=== PATIENT | female | born 1975 | race Two or more races ===

== ENCOUNTER 2018-10-13 05:48 | Emergency (ER) | payer MEDICAID, OTHER ==
[~2018-10-13] VITALS: Ht 152.4 cm; Wt 73.9 kg
[~2018-10-13 05:48] MED LIST: AMOX500C2; HYDR-4683 PO
[2018-10-13 07:21] VITALS: BP 111/74
[2018-10-13] MEDS ORDERED: LACTULOSE 20Gm/30ML SOLN PO ONE (07:45)
[2018-10-13] MEDS ORDERED: KETOROLAC TROMETH 60MG/2ML VIAL IM ONE (07:45)
== END 2018-10-13 08:13 | disposition home or self-care (01) ==
LOC: ER 05:48
DX: K57.30 Diverticulosis of large intestine without perforation or abscess without bleeding (principal); K59.00 Constipation, unspecified; N83.201 Unspecified ovarian cyst, right side; Z87.442 Personal history of urinary calculi; Z98.51 Tubal ligation status
CPT/HCPCS: 74176; 81002; 81025; 99284; J1885

== ENCOUNTER 2019-04-06 19:00 | Emergency (ER) | payer MEDICAID, OTHER ==
[~2019-04-06] VITALS: Ht 152.4 cm; Wt 76.2 kg
[2019-04-06 19:17] VITALS: BP 163/96
[2019-04-06 19:49] LABS: Basophils # (auto) 0 uL; Lymphocytes # (auto) 0.8 uL; Monocytes # (auto) 0.7 uL
[2019-04-06 19:50] LABS: Basophils % (auto) 0.5 % (0.0-2.0); Eosinophils # (auto) 0.1 uL; Eosinophils % (auto) 0.8 % (0.0-7.0); Hematocrit 37.2 % (36.0-46.0); Hemoglobin 12.3 g/dL (12.2-16.2); Lymphocytes % (auto) 10.3 % (10.0-50.0); Mean Corpuscular Hemoglobin 26.7 pg (28.0-32.0); Mean Corpuscular Hgb Conc. 33.1 g/dL (32.0-36.0); Mean Corpuscular Volume 80.6 fL (80.0-100.0); Neutrophils # (auto) 6.2 uL; Neutrophils % (auto) 79.4 % (37.0-80.0); Platelet Count (auto) 342 10^3/uL (140-450); Red Blood Cells 4.62 10^6/uL (4.0-5.20); Red Cell Distribution Width 15.5 % (11.8-14.3); White Blood Cell 7.8 10^3/uL (4.4-10.8)
[2019-04-06 20:11] LABS: Albumin 3.2 g/dL (3.4-5.0); Calcium 8.4 mg/dL (8.5-10.1); Potassium 3.4 mmol/L (3.5-5.1)
[2019-04-06 20:12] LABS: BUN/Creatinine Ratio 10.7
[2019-04-06 20:23] LABS: Bilirubin, Total 0.4 mg/dL (0.2-1.0); Total Protein 7.3 g/dL (6.4-8.2)
== END 2019-04-06 23:00 | disposition left against medical advice (07) ==
LOC: ER 19:05
DX: R10.9 Unspecified abdominal pain (principal); Z87.442 Personal history of urinary calculi; Z53.21 Procedure and treatment not carried out due to patient leaving prior to being seen by health care provider
CPT/HCPCS: 36415; 80053; 84702; 85025

== ENCOUNTER → 2019-04-06 | Emergency (ER) | payer OTHER ==
[~2019-04-06] MED LIST changes: -HYDR-4683 PO; +HYDR-4833 PO
== END | disposition left against medical advice (07) ==
LOC: ER 20:03
DX: M54.5 Low back pain (principal); Z53.21 Procedure and treatment not carried out due to patient leaving prior to being seen by health care provider

== ENCOUNTER 2019-08-26 21:12 | Inpatient (IN) | payer SELFPAY ==
[~2019-08-26] VITALS: Ht 154.9 cm; Wt 76.9 kg
[2019-08-26 22:16] LABS: Albumin 2.8 g/dL (3.4-5.0); BUN/Creatinine Ratio 18.9; Calcium 8.3 mg/dL (8.5-10.1); Potassium 3.6 mmol/L (3.5-5.1)
[2019-08-26 22:19] LABS: Bilirubin, Total 0.3 mg/dL (0.2-1.0); Total Protein 6.9 g/dL (6.4-8.2)
[2019-08-26] MEDS ORDERED: HYDROcodone-ACET 5/325MG TAB PO ONE (23:15)
[2019-08-27] VITALS (8 sets, daily range): BP systolic 100–153; BP diastolic 62–92
[2019-08-27] MEDS ORDERED: ACETAMINOPHEN 325 MG TAB PO PRN (00:30)
[2019-08-27] MEDS ORDERED: MORPHINE SULFATE 4 MG/ML SYR/VIAL IV PRN (00:30)
[2019-08-27] MEDS ORDERED: DOCUSATE SOD 100 MG CAP PO PRN (00:30)
[2019-08-27] MEDS ORDERED: ONDANSETRON HCL 4 MG/2 ML VIAL IV PRN (00:30)
[2019-08-27] MEDS: SODIUM CHLORIDE 0.9% 1,000 ML IV SCH ×2 (02:29→17:09)
[2019-08-27] MEDS: HYDROcodone-ACET 5/325MG TAB PO PRN ×3 (03:58→20:38)
[2019-08-27 06:00] LABS: Basophils # (auto) 0 10 ^3/uL (0-0.2); Basophils % (auto) 0.6 % (0.0-2.0); Eosinophils # (auto) 0.1 10 ^3/uL (0-0.8); Lymphocytes # (auto) 1.6 10 ^3/uL (0.4-5.4); Monocytes # (auto) 0.6 10 ^3/uL (0-1.3); Nucleated Red Blood Cells % 0.1 %; White Blood Cell 6.3 10^3/uL (4.4-10.8)
[2019-08-27 06:04] LABS: Eosinophils % (auto) 1.8 % (0.0-7.0); Hematocrit 21.3 % (36.0-46.0); Lymphocytes % (auto) 24.9 % (10.0-50.0); Mean Corpuscular Hemoglobin 25.7 pg (28.0-32.0); Mean Corpuscular Hgb Conc. 32.5 g/dL (32.0-36.0); Mean Corpuscular Volume 79.1 fL (80.0-100.0); Monocytes % (auto) 8.9 % (0.0-12.0); Neutrophils % (auto) 63.8 % (37.0-80.0); Platelet Count (auto) 380 10^3/uL (140-450); Red Blood Cells 2.69 10^6/uL (4.0-5.20); Red Cell Distribution Width 16.9 % (11.8-14.3)
[2019-08-27 06:07] LABS: Calcium 8.1 mg/dL (8.5-10.1); Potassium 3.6 mmol/L (3.5-5.1)
[2019-08-27 06:09] LABS: Hemoglobin 6.9 g/dL (12.2-16.2)
[2019-08-27 06:10] LABS: BUN/Creatinine Ratio 21.1
--- NOTE | 2019-08-27 06:12 | NUR ---
0610 OBTAINED HEMOGLOBIN RESULT 6.[address] LANDON. TRANSFUSE 1 UNIT OF PRBC.
--- NOTE | 2019-08-27 08:03 | NUR ---
Blood Tubing unavailable at this time. Esthetics Instructor aware. Unable to transfuse patient at this time, no blood tubing available for transfusion on entire Med/surg unit. This RN called ER, they do not have any available at this time. Will continue to monitor situation, call materials management again, they said they will be have some available around 1030.
--- NOTE | 2019-08-27 08:10 | NUR ---
Opening Note Assumed care of patient, she is A & O x4, no s/s of distress. Patient c/o vaginal bleeding, is soaking through a pad every 4 hours, and pain to the lower back. Will medicate per orders. Blood transfusion is ready, but no blood tubing available at this time. Bed is in lowest, locked position, call light within reach, patient is ambulatory and independent. Discussed fall precautions with patient. Will continue to monitor Q1h and PRN.
[2019-08-27] MEDS ORDERED: INFLUENZA QUAD 2019-2020 0.5ml SYRG IM ONE (09:00)
--- NOTE | 2019-08-27 09:22 | NUR ---
Dr. Stephenson at bedside. Orders received, read back and verified for MRI and TSH blood level. Will continue per orders. He would like patient to follow up with him if insurance allows, but the patient will need an IRON MINER BLASTING to follow after this visit.
--- NOTE | 2019-08-27 10:30 | NUR ---
Dr. Russell at bedside. Orders received for diet, read back and verified. Will continue per orders. Dr. Russell made aware by this RN that we are anticipating a blood transfusion once blood tubing is available.
[2019-08-27] MEDS ORDERED: GADOTERIDOL 279.3mg/mL 20ml Vial IV ONE (11:11)
--- NOTE | 2019-08-27 11:22 | NUR ---
Patient to MRI.
[2019-08-27 11:57] LABS: INR 0.98 (0.9-1.15); Partial Thromboplastin Time 23.1 sec (23.64-32.05)
--- NOTE | 2019-08-27 18:21 | NUR ---
Patient vaginal bleeding progress note Patient has saturated two full depends since this morning, patient states "this is how it has been for the past few days". Patient continues to have bleeding that is bright right. Educated patient regarding s/s of increased bleeding and to inform her RN immediately of these s/s. POC discussed, patient agrees. She is comfortable at this time, patient ambulates to bathroom independently, no s/s of hypovolemia. Will continue to monitor.
--- NOTE | 2019-08-27 22:00 | NUR ---
PT STATED SHE WAS BLEEDING OUT. CINDY PAD CHECK REVEALED BLOOD STAIN THE SIZE OF A HALF DOLLAR. NO CLOTS NO MAXIMUM SATURATION.PT UPSET THAT DR ALVARADO IS NOT BEING CALLED IN.UPON CHECKING DR ALVARADO"S PROGRESS NOTE HIS PLAN OF CARE FOR THIS PATIENT IS IRON TABLETS,BLOOD DRAW IN AM AND EVALUATE THE PELVIC MRI. DISCUSSED PLAN OF CARE WITH PATIENT.WILL CONTINUE TO MONITOR.
[2019-08-27] MEDS ORDERED: LIDOCAINE 1% HCL (LOCAL ANESTH.) INJ 20ML MDV ONE (22:47)
[2019-08-28 05:54] VITALS: BP 115/70
[2019-08-28 07:05] LABS: Basophils # (auto) 0 10 ^3/uL (0-0.2); Eosinophils # (auto) 0.1 10 ^3/uL (0-0.8); Hemoglobin 7.8 g/dL (12.2-16.2); Monocytes # (auto) 0.5 10 ^3/uL (0-1.3); Nucleated Red Blood Cells % 0.3 %; White Blood Cell 5.6 10^3/uL (4.4-10.8)
[2019-08-28 07:07] LABS: Basophils % (auto) 0.6 % (0.0-2.0); Eosinophils % (auto) 1.3 % (0.0-7.0); Hematocrit 24.1 % (36.0-46.0); Lymphocytes # (auto) 1.3 10 ^3/uL (0.4-5.4); Lymphocytes % (auto) 22.6 % (10.0-50.0); Mean Corpuscular Hemoglobin 25.7 pg (28.0-32.0); Mean Corpuscular Hgb Conc. 32.5 g/dL (32.0-36.0); Mean Corpuscular Volume 79.1 fL (80.0-100.0); Monocytes % (auto) 9.5 % (0.0-12.0); Neutrophils # (auto) 3.7 10 ^3/uL (1.6-8.6); Platelet Count (auto) 365 10^3/uL (140-450); Red Blood Cells 3.04 10^6/uL (4.0-5.20)
--- NOTE | 2019-08-28 08:08 | NUR ---
Opening Note Assumed care of patient, she is A & O x 4, no s/s of distress. Patient states "I feel weak." She is otherwise comfortable at this time. POC discussed. Bed is in lowest, locked position, call light within reach. Will continue to monitor Q1h and PRN.
--- NOTE | 2019-08-28 08:35 | NUR ---
Dr. Stephenson and Dr. Russell at bedside. Orders received, read back and verified regarding procedure today from Dr. Stephenson. 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
[2019-08-28 09:12] VITALS: BP 116/65
[2019-08-28] MEDS: medroxyPROGESTERone ACETATE 5 MG TAB PO SCH (10:00)
--- NOTE | 2019-08-28 10:24 | NUR ---
PROVERA MED HELD PER DR. ALVARADO.
[2019-08-28] MEDS: SODIUM CHLORIDE 0.9% 1,000 ML IV SCH (10:25)
[2019-08-28 13:00] VITALS: BP 114/64
[2019-08-28 13:45] LABS: INR 0.96 (0.9-1.15); Partial Thromboplastin Time 22.5 sec (23.64-32.05)
[2019-08-28] MEDS ORDERED: FERROUS SULFATE 325 MG TAB PO SCH (14:00)
--- NOTE | 2019-08-28 14:29 | NUR ---
Patient to Pre-op for procedure.
[2019-08-28 14:31] LABS: Urine WBC None Seen /hpf (0 - 5)
[2019-08-28] MEDS ORDERED: MIDAZOLAM HCL 1MG/1ML-2 ML VIAL ONE (14:59)
[2019-08-28] MEDS ORDERED: fentaNYL CITRATE 100 MCG/2 ML VL ONE (14:59)
[2019-08-28] MEDS ORDERED: PROPOFOL 10 MG/ML 20 ML IV ONE (15:04)
[2019-08-28] MEDS ORDERED: METOCLOPRAMIDE HCL 5MG/ml INJ 2ml VIAL ONE (15:39)
[2019-08-28] MEDS ORDERED: ONDANSETRON HCL 4 MG/2 ML VIAL ONE (15:39)
--- NOTE | 2019-08-28 15:55 | NUR ---
Patient at procedure Addendum: 08/28/19 at 1834 by Beth Srivastava RN Amended: Links added.
[2019-08-28 15:56] LABS: Urine Bacteria NONE SEEN /hpf (None Seen); Urine Blood 2+ /uL (Negative); Urine Specific Gravity 1.016 (1.001-1.035)
[2019-08-28] MEDS ORDERED: HYDROmorphone HCL 2 MG/ML VL IV PRN (16:15)
[2019-08-28] MEDS ORDERED: ONDANSETRON HCL 4 MG/2 ML VIAL IV PRN (16:15)
[2019-08-28] MEDS: LACTATED RINGER'S 1,000 ML IV SCH ×2 (17:05→22:43)
--- NOTE | 2019-08-28 17:05 | NUR ---
Patient returned from procedure. Patient is post-op. SBAR received from Kaylee MCKEON, PACU. No s/s of distress. Patient sitting comfortable in her bed on RA talking to her family. BP 117/73, HR 71, RR 16, O2 97%, T 98.3. Informed patient to call before getting up to the bathroom for first time, she agrees, in order to prevent falls. Will continue to monitor patient vaginal bleeding. Minimal bleeding at this time.
[2019-08-28 17:16] VITALS: BP 117/73
--- NOTE | 2019-08-28 17:55 | NUR ---
Patient at procedure. Addendum: 08/28/19 at 1834 by Beth Srivastava RN Amended: Links added.
[2019-08-28] MEDS: FERROUS SULFATE 325 MG TAB PO SCH (18:44)
--- NOTE | 2019-08-28 19:00 | NUR ---
OPENING NOTE Received report from day shift RN. Patient is resting in bed with eyes closed and no s/s of distress or pain. Bed is in lowest/locked position with side rails up X's 2 and call light is within reach of patient. Bed alarm is set. Will continue care.
--- NOTE | 2019-08-28 19:51 | NUR ---
SPOKE WITH PATIENT'S DAUGHTER Password was obtained. Patient's daughter was updated on plan of care and all questions were answered. She was told that she could call back at any time if she has any more questions/concerns.
[2019-08-28] MEDS: metroNIDAZOLE 500 MG TAB PO SCH (21:24)
[2019-08-28 22:00] VITALS: BP 98/53
--- NOTE | 2019-08-28 22:00 | NUR ---
PATIENT AMBULATED Patient ambulated to bathroom at this time with standby assistance. Patient reported some vaginal bleeding still. Latia pad has minimal- moderate amount of sanguineous discharge on it. Patient reported a lot less bleeding than before at this time. Will continue to monitor.
[2019-08-29] VITALS (8 sets, daily range): BP systolic 100–125; BP diastolic 58–77
[2019-08-29 04:30] LABS: Basophils # (auto) 0 10 ^3/uL (0-0.2); Basophils % (auto) 0.4 % (0.0-2.0); Eosinophils # (auto) 0.1 10 ^3/uL (0-0.8); Eosinophils % (auto) 0.9 % (0.0-7.0); Hematocrit 23.6 % (36.0-46.0); Hemoglobin 7.5 g/dL (12.2-16.2); Lymphocytes # (auto) 1.2 10 ^3/uL (0.4-5.4); Lymphocytes % (auto) 14.6 % (10.0-50.0); Mean Corpuscular Hemoglobin 25.1 pg (28.0-32.0); Mean Corpuscular Hgb Conc. 31.8 g/dL (32.0-36.0); Mean Corpuscular Volume 79.1 fL (80.0-100.0); Monocytes # (auto) 0.6 10 ^3/uL (0-1.3); Monocytes % (auto) 7.4 % (0.0-12.0); Neutrophils # (auto) 6.1 10 ^3/uL (1.6-8.6); Neutrophils % (auto) 76.7 % (37.0-80.0); Nucleated Red Blood Cells % 0.1 %; Platelet Count (auto) 388 10^3/uL (140-450); Red Blood Cells 2.98 10^6/uL (4.0-5.20); Red Cell Distribution Width 16.6 % (11.8-14.3)
[2019-08-29] MEDS: LACTATED RINGER'S 1,000 ML IV SCH ×2 (05:23→12:03)
[2019-08-29] MEDS ORDERED: LEVOTHYROXINE SODIUM 25 MCG TAB PO SCH (07:00)
--- NOTE | 2019-08-29 08:15 | NUR ---
RECEIVED REPORT AND ASSUMED CARE OF PT. A/OX4. DENIED S/S ACUTE DISTRESS. UPDATE PT WITH POC.BED AT LOWEST POSITION. CALL LIGHT AND BELONGINGS WITHIN REACH. WILL CONT TO MONITOR.
[2019-08-29] MEDS: metroNIDAZOLE 500 MG TAB PO SCH (10:07)
[2019-08-29] MEDS: medroxyPROGESTERone ACETATE 5 MG TAB PO SCH (10:08)
[2019-08-29] MEDS: FERROUS SULFATE 325 MG TAB PO SCH ×2 (10:08→13:30)
[2019-08-29 15:16] LABS: Basophils # (auto) 0 10 ^3/uL (0-0.2); Eosinophils # (auto) 0 10 ^3/uL (0-0.8); Eosinophils % (auto) 0.3 % (0.0-7.0); Hemoglobin 9.3 g/dL (12.2-16.2); Lymphocytes # (auto) 1.2 10 ^3/uL (0.4-5.4); Mean Corpuscular Hemoglobin 25.7 pg (28.0-32.0); Monocytes # (auto) 0.6 10 ^3/uL (0-1.3)
[2019-08-29 15:17] LABS: Basophils % (auto) 0.3 % (0.0-2.0); Hematocrit 29.3 % (36.0-46.0); Lymphocytes % (auto) 12.6 % (10.0-50.0); Mean Corpuscular Hgb Conc. 31.6 g/dL (32.0-36.0); Mean Corpuscular Volume 81.3 fL (80.0-100.0); Monocytes % (auto) 6.3 % (0.0-12.0); Neutrophils # (auto) 7.6 10 ^3/uL (1.6-8.6); Neutrophils % (auto) 80.5 % (37.0-80.0); Nucleated Red Blood Cells % 0.1 %; Platelet Count (auto) 379 10^3/uL (140-450); Red Cell Distribution Width 17.2 % (11.8-14.3); White Blood Cell 9.4 10^3/uL (4.4-10.8)
--- NOTE | 2019-08-29 15:55 | NUR ---
HGB LEVEL,9.[address] NOVAK MADE AWARE AND SAID IT'S OK FOR PT TO DC.
--- NOTE | 2019-08-29 17:41 | NUR ---
A/OX4. DENIED S/S ACUTE DISTRESS. DENIED SOB/CP/N/V/DIZZINESS. DC INSTRUCTIONS GIVEN AND PT VERBALIZED UNDERSTANDING. EMPHASIZED NEED FOR F/U APPOINTMENT. PT LEFT UNIT VIA W/C IN STABLE CONDITION.
== END 2019-08-29 17:45 | disposition home or self-care (01) | DRG 744 ==
LOC: ER 21:14 → OVERFLOW 21:15 → CENTRAL 08-27 01:21
PROVIDERS: ADMIT Hospitalist; ATTEND Family Medicine
PROC: 30233N1 Transfusion of Nonautologous Red Blood Cells into Peripheral Vein, Percutaneous Approach (ICD-10-PCS; 2019-08-27)
PROC: 0UDB7ZZ Extraction of Endometrium, Via Natural or Artificial Opening (ICD-10-PCS; principal; 2019-08-28 15:26)
DX: N92.1 Excessive and frequent menstruation with irregular cycle (principal); D62 Acute posthemorrhagic anemia; K46.9 Unspecified abdominal hernia without obstruction or gangrene; E03.9 Hypothyroidism, unspecified; N83.201 Unspecified ovarian cyst, right side; N85.2 Hypertrophy of uterus; Z80.9 Family history of malignant neoplasm, unspecified; Z82.49 Family history of ischemic heart disease and other diseases of the circulatory system; Z83.3 Family history of diabetes mellitus; Z87.442 Personal history of urinary calculi; Z98.891 History of uterine scar from previous surgery
CPT/HCPCS: 36415; 36430; 73723; 76830; 76856; 80048; 80053; 81001; 81025; 84443; 84702; 85025; 85610; 85730; 86850; 86900; 86901; 86920; 96360; G0378; J2001; J2250; J2405; J2704

== ENCOUNTER 2019-09-01 19:08 | Emergency (ER) | payer SELFPAY ==
[~2019-09-01] VITALS: Ht 152.4 cm; Wt 73.9 kg
[2019-09-01 19:49] LABS: Urine WBC None Seen /hpf (0 - 5)
[2019-09-01 19:59] LABS: Urine Bacteria NONE SEEN /hpf (None Seen); Urine Blood 3+ /uL (Negative)
[2019-09-01 21:09] LABS: Basophils # (auto) 0 10 ^3/uL (0-0.2); Basophils % (auto) 0.4 % (0.0-2.0); Eosinophils # (auto) 0.1 10 ^3/uL (0-0.8); Eosinophils % (auto) 1.6 % (0.0-7.0); Hematocrit 28.8 % (36.0-46.0); Hemoglobin 9.4 g/dL (12.2-16.2); Lymphocytes # (auto) 1.6 10 ^3/uL (0.4-5.4); Lymphocytes % (auto) 17.7 % (10.0-50.0); Mean Corpuscular Hgb Conc. 32.6 g/dL (32.0-36.0); Mean Corpuscular Volume 82.8 fL (80.0-100.0); Monocytes # (auto) 0.7 10 ^3/uL (0-1.3); Monocytes % (auto) 7.7 % (0.0-12.0); Neutrophils # (auto) 6.5 10 ^3/uL (1.6-8.6); Neutrophils % (auto) 72.6 % (37.0-80.0); Nucleated Red Blood Cells % 0.2 %; Platelet Count (auto) 396 10^3/uL (140-450); Red Blood Cells 3.48 10^6/uL (4.0-5.20); Red Cell Distribution Width 17.6 % (11.8-14.3)
[2019-09-01 21:25] LABS: Albumin 3.1 g/dL (3.4-5.0); Calcium 8.5 mg/dL (8.5-10.1); Potassium 3.4 mmol/L (3.5-5.1)
[2019-09-01 21:30] LABS: BUN/Creatinine Ratio 14.5; Bilirubin, Total 0.5 mg/dL (0.2-1.0); Total Protein 7.1 g/dL (6.4-8.2)
[2019-09-01 21:40] VITALS: BP 141/90
== END 2019-09-01 22:07 | disposition home or self-care (01) ==
LOC: ER 19:09
DX: N93.9 Abnormal uterine and vaginal bleeding, unspecified (principal); N39.0 Urinary tract infection, site not specified; Z90.89 Acquired absence of other organs
CPT/HCPCS: 36415; 80053; 81001; 85025; 86850; 86900; 86901

== ENCOUNTER 2019-10-19 23:23 | Emergency (ER) | payer SELFPAY ==
[~2019-10-19] VITALS: Ht 152.4 cm; Wt 74.8 kg
[2019-10-19 23:44] VITALS: BP 148/83
[2019-10-20 00:26] LABS: Basophils # (auto) 0.1 10 ^3/uL (0-0.2); Basophils % (auto) 0.7 % (0.0-2.0); Eosinophils # (auto) 0.1 10 ^3/uL (0-0.8); Eosinophils % (auto) 0.8 % (0.0-7.0); Hematocrit 38.5 % (36.0-46.0); Hemoglobin 12.4 g/dL (12.2-16.2); Lymphocytes # (auto) 1.4 10 ^3/uL (0.4-5.4); Lymphocytes % (auto) 15.1 % (10.0-50.0); Mean Corpuscular Hemoglobin 27.5 pg (28.0-32.0); Mean Corpuscular Hgb Conc. 32.3 g/dL (32.0-36.0); Mean Corpuscular Volume 85.1 fL (80.0-100.0); Monocytes # (auto) 0.8 10 ^3/uL (0-1.3); Monocytes % (auto) 8.2 % (0.0-12.0); Neutrophils # (auto) 6.9 10 ^3/uL (1.6-8.6); Neutrophils % (auto) 75.2 % (37.0-80.0); Platelet Count (auto) 392 10^3/uL (140-450); Red Blood Cells 4.53 10^6/uL (4.0-5.20); Red Cell Distribution Width 17.7 % (11.8-14.3); White Blood Cell 9.2 10^3/uL (4.4-10.8)
[2019-10-20 00:41] LABS: INR 0.96 (0.9-1.15); Partial Thromboplastin Time 27.6 sec (23.64-32.05)
[2019-10-20 00:43] LABS: Albumin 2.8 g/dL (3.4-5.0); BUN/Creatinine Ratio 16.7; Potassium 3.4 mmol/L (3.5-5.1)
[2019-10-20 00:46] LABS: Bilirubin, Total 0.2 mg/dL (0.2-1.0); Total Protein 7.1 g/dL (6.4-8.2)
== END 2019-10-20 02:10 | disposition left against medical advice (07) ==
LOC: ER 23:24
DX: N93.9 Abnormal uterine and vaginal bleeding, unspecified (principal); Z53.21 Procedure and treatment not carried out due to patient leaving prior to being seen by health care provider
CPT/HCPCS: 36415; 80053; 84702; 85025; 85610; 85730; 86850; 86900; 86901

== ENCOUNTER → 2019-10-20 | Emergency (ER) | payer SELFPAY ==
[~2019-10-20] VITALS: Ht 157.5 cm; Wt 81.6 kg
[~2019-10-20] MED LIST changes: -AMOX500C2; -HYDR-4833 PO; +HYDROcodone-ACET 5/325MG TAB PO ONE; +medroxyPROGESTERone ACETATE 5 MG TAB PO ONE
[2019-10-20 12:51] LABS: Basophils # (auto) 0 10 ^3/uL (0-0.2); Basophils % (auto) 0.5 % (0.0-2.0); Eosinophils # (auto) 0.1 10 ^3/uL (0-0.8); Hematocrit 35.7 % (36.0-46.0); Lymphocytes # (auto) 1.1 10 ^3/uL (0.4-5.4); Monocytes # (auto) 0.5 10 ^3/uL (0-1.3); Platelet Count (auto) 362 10^3/uL (140-450)
[2019-10-20 12:53] LABS: Eosinophils % (auto) 1.1 % (0.0-7.0); Hemoglobin 11.5 g/dL (12.2-16.2); Lymphocytes % (auto) 15.6 % (10.0-50.0); Mean Corpuscular Hgb Conc. 32.1 g/dL (32.0-36.0); Mean Corpuscular Volume 84.1 fL (80.0-100.0); Monocytes % (auto) 6.4 % (0.0-12.0); Neutrophils # (auto) 5.6 10 ^3/uL (1.6-8.6); Neutrophils % (auto) 76.4 % (37.0-80.0); Red Blood Cells 4.24 10^6/uL (4.0-5.20); Red Cell Distribution Width 17.8 % (11.8-14.3); White Blood Cell 7.3 10^3/uL (4.4-10.8)
[2019-10-20 13:07] LABS: Albumin 2.4 g/dL (3.4-5.0); Calcium 7.5 mg/dL (8.5-10.1); INR 0.99 (0.9-1.15); Partial Thromboplastin Time 27.2 sec (23.64-32.05); Potassium 3.4 mmol/L (3.5-5.1)
[2019-10-20 13:11] LABS: BUN/Creatinine Ratio 14.5; Bilirubin, Total 0.3 mg/dL (0.2-1.0); Total Protein 6.4 g/dL (6.4-8.2)
[2019-10-20 14:39] VITALS: BP 135/87
== END | disposition home or self-care (01) ==
LOC: EDUNIT# 11:49 → EDBD 12:02 → ER 12:02
DX: N93.9 Abnormal uterine and vaginal bleeding, unspecified (principal); E86.0 Dehydration; N92.0 Excessive and frequent menstruation with regular cycle; E87.6 Hypokalemia; D25.9 Leiomyoma of uterus, unspecified
CPT/HCPCS: 36415; 76856; 80053; 84443; 84702; 85025; 85610; 85730

== ENCOUNTER 2019-12-02 18:13 | Emergency (ER) | payer MEDICAID, OTHER ==
[~2019-12-02] VITALS: Ht 160 cm; Wt 59.0 kg
[2019-12-02] MEDS ORDERED: ONDANSETRON HCL 4 MG/2 ML VIAL IV ONE (20:00)
[2019-12-02] MEDS ORDERED: MORPHINE SULFATE 4 MG/ML SYR/VIAL IV ONE (20:00)
[2019-12-02 20:06] LABS: Eosinophils # (auto) 0 10 ^3/uL (0-0.8); Monocytes # (auto) 0.7 10 ^3/uL (0-1.3); Monocytes % (auto) 6.2 % (0.0-12.0); Red Blood Cells 4.45 10^6/uL (4.0-5.20)
[2019-12-02 20:08] LABS: Basophils # (auto) 0.1 10 ^3/uL (0-0.2); Basophils % (auto) 0.5 % (0.0-2.0); Eosinophils % (auto) 0.3 % (0.0-7.0); Hematocrit 33.1 % (36.0-46.0); Hemoglobin 10.6 g/dL (12.2-16.2); Lymphocytes # (auto) 0.8 10 ^3/uL (0.4-5.4); Lymphocytes % (auto) 6.8 % (10.0-50.0); Mean Corpuscular Hemoglobin 23.9 pg (28.0-32.0); Mean Corpuscular Hgb Conc. 32.1 g/dL (32.0-36.0); Mean Corpuscular Volume 74.3 fL (80.0-100.0); Neutrophils % (auto) 86.2 % (37.0-80.0); Platelet Count (auto) 443 10^3/uL (140-450); White Blood Cell 11.5 10^3/uL (4.4-10.8)
[2019-12-02 20:09] LABS: Red Cell Distribution Width 20.8 % (11.8-14.3)
[2019-12-02 20:24] LABS: Albumin 2.7 g/dL (3.4-5.0); BUN/Creatinine Ratio 11.4; Calcium 7.8 mg/dL (8.5-10.1); Potassium 3.8 mmol/L (3.5-5.1)
[2019-12-02 20:27] LABS: Bilirubin, Total 0.4 mg/dL (0.2-1.0); Total Protein 7.2 g/dL (6.4-8.2)
[2019-12-02 21:14] LABS: Urine Bacteria MOD /hpf (None Seen); Urine Blood TRACE /uL (Negative); Urine Mucus FEW (None Seen); Urine Specific Gravity 1.011 (1.001-1.035); Urine WBC 47 /hpf (0 - 5); Urine WBC Clumps PRESENT /hpf (None Seen)
[2019-12-02 22:15] VITALS: BP 115/72
== END 2019-12-02 22:45 | disposition home or self-care (01) ==
LOC: ER 18:13 → EDBD 18:13 → ER 22:45
DX: S33.5XXA Sprain of ligaments of lumbar spine, initial encounter (principal); N39.0 Urinary tract infection, site not specified; X58.XXXA Exposure to other specified factors, initial encounter; Y93.89 Activity, other specified; Y92.89 Other specified places as the place of occurrence of the external cause; Y99.8 Other external cause status
CPT/HCPCS: 36415; 74176; 80053; 81001; 85025; 96374; 96375; 99284; J2270; J2405

== ENCOUNTER 2020-02-17 16:29 | Emergency (ER) | payer SELFPAY ==
[~2020-02-17] VITALS: Ht 154.9 cm; Wt 72.6 kg
[2020-02-17 16:34] VITALS: BP 185/80
[2020-02-17] MEDS ORDERED: KETOROLAC TROMETH 60MG/2ML VIAL IM ONE (17:45)
== END 2020-02-17 18:00 | disposition home or self-care (01) ==
LOC: ER 16:29
DX: S83.91XA Sprain of unspecified site of right knee, initial encounter (principal); M25.461 Effusion, right knee; X58.XXXA Exposure to other specified factors, initial encounter; Y93.89 Activity, other specified; Y92.89 Other specified places as the place of occurrence of the external cause; Y99.8 Other external cause status
CPT/HCPCS: 73562; 96372; 99283; J1885

== ENCOUNTER 2020-11-12 06:10 | Emergency (ER) | payer MEDICAID, OTHER ==
[~2020-11-12] VITALS: Ht 157.5 cm; Wt 72.6 kg
[2020-11-12 08:01] LABS: Basophils # (auto) 0.1 10 ^3/uL (0-0.2); Basophils % (auto) 1.2 % (0.0-2.0); Eosinophils # (auto) 0.2 10 ^3/uL (0-0.8); Lymphocytes # (auto) 1.9 10 ^3/uL (0.4-5.4); Mean Corpuscular Hemoglobin 22.7 pg (28.0-32.0); Red Blood Cells 4.77 10^6/uL (4.0-5.20); White Blood Cell 7.8 10^3/uL (4.4-10.8)
[2020-11-12 08:02] LABS: Eosinophils % (auto) 2.5 % (0.0-7.0); Hematocrit 33.9 % (36.0-46.0); Hemoglobin 10.9 g/dL (12.2-16.2); Lymphocytes % (auto) 24.5 % (10.0-50.0); Mean Corpuscular Hgb Conc. 32.1 g/dL (32.0-36.0); Monocytes # (auto) 0.7 10 ^3/uL (0-1.3); Monocytes % (auto) 9.4 % (0.0-12.0); Neutrophils # (auto) 4.9 10 ^3/uL (1.6-8.6); Neutrophils % (auto) 62.4 % (37.0-80.0); Nucleated Red Blood Cells % 0.1 %
[2020-11-12 08:05] LABS: Red Cell Distribution Width 24.3 % (11.8-14.3)
[2020-11-12 08:09] LABS: Urine Bacteria NONE SEEN /hpf (None Seen); Urine Blood 3+ /uL (Negative); Urine Mucus FEW (None Seen); Urine WBC 145 /hpf (0 - 5)
[2020-11-12 08:12] LABS: Urine Specific Gravity 1.025 (1.001-1.035)
[2020-11-12] MEDS ORDERED: ACETAMINOPHEN 500 MG TAB PO ONE (08:15)
[2020-11-12 08:17] LABS: INR 0.95 (0.9-1.15); Partial Thromboplastin Time 24.1 sec (23.0-31.2)
[2020-11-12 08:44] LABS: Albumin 2.9 g/dL (3.4-5.0); Anion Gap 4 (5-15); Blood Urea Nitrogen 12 mg/dL (7-18); Calcium 8.2 mg/dL (8.5-10.1); Carbon Dioxide 27 mmol/L (21-32); Chloride 107 mmol/L (98-107); Glucose 105 mg/dL (74-106); Potassium 4.3 mmol/L (3.5-5.1); Sodium 138 mmol/L (136-145)
[2020-11-12 08:51] LABS: Alanine Aminotransferase 19 U/L (13-56); Alkaline Phosphatase 102 U/L (45-117); Aspartate Aminotransferase 16 U/L (15-37); BUN/Creatinine Ratio 17.1; Bilirubin, Total 0.4 mg/dL (0.2-1.0); GFR African American 115 mL/min; GFR Non-African American 95 mL/min; Total Protein 7.1 g/dL (6.4-8.2)
[2020-11-12] MEDS ORDERED: cefTRIAXone 1GM/50ML D5W 50 ML IV ONE (09:00)
[2020-11-12 09:02] VITALS: BP 131/68
== END 2020-11-12 09:40 | disposition home or self-care (01) ==
LOC: ER 06:10
DX: N92.0 Excessive and frequent menstruation with regular cycle (principal); N39.0 Urinary tract infection, site not specified; Z90.89 Acquired absence of other organs
CPT/HCPCS: 36415; 80053; 81001; 84484; 84702; 85025; 85610; 85730; 86850; 86900; 86901; 93005; 96365; 99285; J0696

== ENCOUNTER 2020-12-22 21:04 | Inpatient (IN) | payer SELFPAY ==
[~2020-12-22] VITALS: Ht 152.4 cm; Wt 78.0 kg
[2020-12-22] MEDS ORDERED: ALBUTEROL SULF 2.5 MG/0.5ML(0.5%) NEB SOLN ONE (21:14)
[2020-12-22] MEDS ORDERED: IPRATROPIUM BROM 0.5 MG/2.5ML INH SOL ONE (21:15)
[2020-12-22] MEDS ORDERED: ALBUTEROL SULF 2.5 MG/0.5ML(0.5%) NEB SOLN NEB ONE (21:15)
[2020-12-22] MEDS ORDERED: IPRATROPIUM BROM 0.5 MG/2.5ML INH SOL NEB ONE (21:15)
[2020-12-22] MEDS ORDERED: CEFTRIAXONE SODIUM 2 GM in D5W 5% 50 ML IV ONE (21:30)
[2020-12-22] MEDS ORDERED: methylPREDNISolone SOD SUCC 125 MG/2 ML VL IV ONE (21:30)
[2020-12-22 22:06] LABS: Eosinophils # (auto) 0.1 10 ^3/uL (0-0.8); Hematocrit 22.1 % (36.0-46.0); Nucleated Red Blood Cells % 0.3 %; White Blood Cell 11.5 10^3/uL (4.4-10.8)
[2020-12-22] MEDS ORDERED: cefTRIAXone 1GM/50ML D5W 50 ML IV ONE (22:08)
[2020-12-22 22:09] LABS: Basophils # (auto) 0 10 ^3/uL (0-0.2); Basophils % (auto) 0.3 % (0.0-2.0); Eosinophils % (auto) 0.8 % (0.0-7.0); Lymphocytes # (auto) 3.6 10 ^3/uL (0.4-5.4); Lymphocytes % (auto) 31.6 % (10.0-50.0); Mean Corpuscular Hemoglobin 19.5 pg (28.0-32.0); Monocytes # (auto) 0.7 10 ^3/uL (0-1.3); Monocytes % (auto) 6.1 % (0.0-12.0); Neutrophils % (auto) 61.2 % (37.0-80.0)
[2020-12-22 22:17] LABS: Red Cell Distribution Width 23.2 % (11.8-14.3)
[2020-12-22 22:19] LABS: Hemoglobin 6.6 g/dL (12.2-16.2)
[2020-12-22 22:21] LABS: Calcium 8.5 mg/dL (8.5-10.1); Potassium 3.3 mmol/L (3.5-5.1)
[2020-12-22 22:36] LABS: Albumin 3.2 g/dL (3.4-5.0); BUN/Creatinine Ratio 20.8; Bilirubin, Total 0.5 mg/dL (0.2-1.0); Total Protein 7.5 g/dL (6.4-8.2)
[2020-12-23] VITALS (8 sets, daily range): BP systolic 120–138; BP diastolic 61–70
[2020-12-23] MEDS ORDERED: PROMETHAZINE W/CODEINE 5 ML ORAL SYRUP PO ONE (00:45)
[2020-12-23] MEDS ORDERED: hydrALAZINE HCL 20 MG/ML VL IV PRN (02:00)
[2020-12-23] MEDS ORDERED: ONDANSETRON HCL 4 MG/2 ML VIAL IV PRN (02:00)
[2020-12-23] MEDS ORDERED: DOCUSATE SOD 100 MG CAP PO PRN (02:00)
[2020-12-23] MEDS ORDERED: POTASSIUM CHL 20 Meq TABLET PO ONE (02:00)
[2020-12-23] MEDS ORDERED: MORPHINE SULF INJ 2 MG/ML SYRINGE 1ML IV PRN (02:00)
[2020-12-23] MEDS ORDERED: NITROGLYCERIN 0.4 MG SL TAB SL PRN (02:00)
[2020-12-23] MEDS: HYDROcodone-ACET 5/325MG TAB PO PRN (03:11)
[2020-12-23] MEDS: IPRATROPIUM BROM 0.5 MG/2.5ML INH SOL NEB PRN ×2 (03:23→09:27)
[2020-12-23] MEDS: ALBUTEROL SULF 2.5 MG/0.5ML(0.5%) NEB SOLN NEB PRN ×2 (03:23→09:27)
[2020-12-23] MEDS: PROMETHAZINE-DM 5 ML ORAL SYRUP PO PRN ×2 (05:33→19:46)
[2020-12-23] MEDS: SODIUM CHLOR 0.9% PF (SALINE LOCK) 10ML VIAL/SYR IV SCH ×3 (06:10→20:20)
[2020-12-23 06:18] LABS: Urine Bacteria FEW /hpf (None Seen); Urine Blood 3+ /uL (Negative); Urine Mucus FEW (None Seen); Urine Specific Gravity 1.015 (1.001-1.035); Urine WBC 2 /hpf (0 - 5)
[2020-12-23] MEDS: ACETAMINOPHEN 325 MG TAB PO PRN ×2 (06:18→12:00)
[2020-12-23] MEDS ORDERED: diphenhdrAMINE HCL 50 MG/1 ML VL ONE (09:42)
[2020-12-23] MEDS ORDERED: methylPREDNISolone SOD SUCC 125 MG/2 ML VL ONE (09:42)
[2020-12-23] MEDS ORDERED: methylPREDNISolone SOD SUCC 125 MG/2 ML VL IV ONE (10:00)
[2020-12-23] MEDS ORDERED: diphenhdrAMINE HCL 50 MG/1 ML VL IV ONE (10:00)
[2020-12-23] MEDS ORDERED: ASCORBIC ACID 500 MG TAB PO SCH (10:00)
[2020-12-23] MEDS ORDERED: ZINC SULFATE 220mg CAP or TAB PO SCH (10:00)
[2020-12-23] MEDS: FAMOTIDINE (10MG/ML) 2ML VL IV SCH ×2 (10:48→20:20)
[2020-12-23] MEDS: medroxyPROGESTERone ACETATE 5 MG TAB PO SCH (10:48)
[2020-12-23] MEDS: MULTIPLE VITAMIN TAB PO SCH (10:48)
[2020-12-23 13:29] LABS: Basophils # (auto) 0 10 ^3/uL (0-0.2); Basophils % (auto) 0.4 % (0.0-2.0); Eosinophils # (auto) 0 10 ^3/uL (0-0.8); Mean Corpuscular Hemoglobin 22.5 pg (28.0-32.0); Monocytes # (auto) 0 10 ^3/uL (0-1.3)
[2020-12-23 13:31] LABS: Hematocrit 28.4 % (36.0-46.0); Hemoglobin 9.1 g/dL (12.2-16.2); Lymphocytes # (auto) 0.7 10 ^3/uL (0.4-5.4); Lymphocytes % (auto) 6.3 % (10.0-50.0); Mean Corpuscular Volume 70.5 fL (80.0-100.0); Monocytes % (auto) 0.5 % (0.0-12.0); Neutrophils % (auto) 92.8 % (37.0-80.0); Nucleated Red Blood Cells % 0.1 %; Red Blood Cells 4.02 10^6/uL (4.0-5.20); White Blood Cell 10.8 10^3/uL (4.4-10.8)
[2020-12-23 13:35] LABS: Red Cell Distribution Width 27.9 % (11.8-14.3)
[2020-12-23] MEDS ORDERED: cefTRIAXone 1GM/50ML D5W 50 ML IV SCH (22:00)
[2020-12-24] MEDS: HYDROcodone-ACET 5/325MG TAB PO PRN ×2 (03:49→09:00)
[2020-12-24] MEDS: SODIUM CHLOR 0.9% PF (SALINE LOCK) 10ML VIAL/SYR IV SCH (04:40)
[2020-12-24 05:00] VITALS: BP 109/58
[2020-12-24 06:17] LABS: Basophils # (auto) 0 10 ^3/uL (0-0.2); Eosinophils # (auto) 0 10 ^3/uL (0-0.8); Hemoglobin 8.4 g/dL (12.2-16.2); Monocytes # (auto) 1.1 10 ^3/uL (0-1.3)
[2020-12-24 06:19] LABS: Basophils % (auto) 0.1 % (0.0-2.0); Hematocrit 26.9 % (36.0-46.0); Lymphocytes # (auto) 1.2 10 ^3/uL (0.4-5.4); Lymphocytes % (auto) 5.6 % (10.0-50.0); Mean Corpuscular Hemoglobin 21.7 pg (28.0-32.0); Mean Corpuscular Hgb Conc. 31.2 g/dL (32.0-36.0); Mean Corpuscular Volume 69.6 fL (80.0-100.0); Monocytes % (auto) 5.1 % (0.0-12.0); Neutrophils # (auto) 19.8 10 ^3/uL (1.6-8.6); Neutrophils % (auto) 89.2 % (37.0-80.0); Nucleated Red Blood Cells % 0.3 %; Red Blood Cells 3.87 10^6/uL (4.0-5.20); White Blood Cell 22.2 10^3/uL (4.4-10.8)
[2020-12-24 06:36] LABS: Red Cell Distribution Width 27.6 % (11.8-14.3)
[2020-12-24 06:38] LABS: Potassium 3.9 mmol/L (3.5-5.1)
[2020-12-24 07:39] LABS: BUN/Creatinine Ratio 25.4
[2020-12-24 07:40] LABS: Albumin 2.8 g/dL (3.4-5.0); Bilirubin, Total 0.5 mg/dL (0.2-1.0); Calcium 8.3 mg/dL (8.5-10.1); Total Protein 6.9 g/dL (6.4-8.2)
[2020-12-24] MEDS: FAMOTIDINE (10MG/ML) 2ML VL IV SCH (08:59)
[2020-12-24 09:00] VITALS: BP 125/54
[2020-12-24] MEDS: MULTIPLE VITAMIN TAB PO SCH (09:00)
[2020-12-24] MEDS: medroxyPROGESTERone ACETATE 5 MG TAB PO SCH (09:01)
== END 2020-12-24 12:52 | disposition home or self-care (01) | DRG 761 ==
LOC: ER 21:04 → TELE 12-23 02:09 → TELE-WESTW 12-23 10:10
PROVIDERS: ADMIT Nurse Practitioner Family; ATTEND Obstetrics & Gynecology
PROC: 30230N1 Transfusion of Nonautologous Red Blood Cells into Peripheral Vein, Open Approach (ICD-10-PCS; principal; 2020-12-23)
DX: N93.9 Abnormal uterine and vaginal bleeding, unspecified (principal); J06.9 Acute upper respiratory infection, unspecified; D50.9 Iron deficiency anemia, unspecified; D72.829 Elevated white blood cell count, unspecified; E87.6 Hypokalemia; D25.9 Leiomyoma of uterus, unspecified; N83.201 Unspecified ovarian cyst, right side; N88.8 Other specified noninflammatory disorders of cervix uteri; N92.0 Excessive and frequent menstruation with regular cycle; D64.9 Anemia, unspecified; T78.3XXA Angioneurotic edema, initial encounter; Z20.822 Contact with and (suspected) exposure to COVID-19; E03.9 Hypothyroidism, unspecified; Z80.9 Family history of malignant neoplasm, unspecified; Z82.49 Family history of ischemic heart disease and other diseases of the circulatory system; Z83.3 Family history of diabetes mellitus
CPT/HCPCS: 36415; 36430; 71045; 76830; 76856; 80053; 81001; 83880; 84439; 84443; 84702; 85025; 85379; 86850; 86900; 86901; 86920; 87426; 94640; 96365; 96375; G0378; J0696; J3490; J7060

== ENCOUNTER 2021-10-28 08:45 | Emergency (ER) | payer MEDICAID ==
[~2021-10-28] VITALS: Ht 154.9 cm; Wt 74.8 kg
[2021-10-28 09:57] VITALS: BP 109/60
== END 2021-10-28 10:32 | disposition home or self-care (01) ==
LOC: ER 08:45
DX: M25.562 Pain in left knee (principal); M25.561 Pain in right knee; E03.9 Hypothyroidism, unspecified; Z90.89 Acquired absence of other organs
CPT/HCPCS: 73562

== ENCOUNTER 2022-01-09 18:48 | Emergency (ER) | payer MEDICAID ==
[~2022-01-09] VITALS: Ht 152.4 cm; Wt 72.0 kg
[2022-01-09 19:53] LABS: Basophils # (auto) 0 10 ^3/uL (0-0.2); Basophils % (auto) 0.5 % (0.0-2.0); Eosinophils # (auto) 0 10 ^3/uL (0-0.8); Eosinophils % (auto) 0.5 % (0.0-7.0); Hematocrit 39.4 % (36.0-46.0); Hemoglobin 12.5 g/dL (12.2-16.2); Lymphocytes # (auto) 1.1 10 ^3/uL (0.4-5.4); Lymphocytes % (auto) 12.7 % (10.0-50.0); Mean Corpuscular Hemoglobin 25.7 pg (28.0-32.0); Mean Corpuscular Hgb Conc. 31.6 g/dL (32.0-36.0); Mean Corpuscular Volume 81.3 fL (80.0-100.0); Monocytes # (auto) 0.6 10 ^3/uL (0-1.3); Monocytes % (auto) 6.7 % (0.0-12.0); Neutrophils # (auto) 6.9 10 ^3/uL (1.6-8.6); Neutrophils % (auto) 79.6 % (37.0-80.0); Nucleated Red Blood Cells % 0.1 %; Red Blood Cells 4.85 10^6/uL (4.0-5.20); Red Cell Distribution Width 17.6 % (11.8-14.3); White Blood Cell 8.6 10^3/uL (4.4-10.8)
[2022-01-09] MEDS ORDERED: IOHEXOL 300 MG/ML 100ML BOTTLE IJ ONE (20:16)
[2022-01-09] MEDS ORDERED: fentaNYL CITRATE 100 MCG/2 ML VL ONE (20:20)
[2022-01-09 20:22] LABS: Albumin 2.9 g/dL (3.4-5.0); Anion Gap 8 (5-15); Blood Urea Nitrogen 10 mg/dL (7-18); Calcium 8.3 mg/dL (8.5-10.1); Carbon Dioxide 23 mmol/L (21-32); Chloride 111 mmol/L (98-107); Glucose 116 mg/dL (74-106); Potassium 3.5 mmol/L (3.5-5.1); Sodium 142 mmol/L (136-145)
[2022-01-09 20:24] LABS: Alanine Aminotransferase 55 U/L (13-56); Aspartate Aminotransferase 81 U/L (15-37); BUN/Creatinine Ratio 13.3; GFR African American 106 mL/min; GFR Non-African American 88 mL/min
[2022-01-09 20:29] LABS: Alkaline Phosphatase 96 U/L (45-117); Bilirubin, Total 0.4 mg/dL (0.2-1.0); Total Protein 6.9 g/dL (6.4-8.2)
[2022-01-09] MEDS ORDERED: fentaNYL CITRATE 100 MCG/2 ML VL IV ONE (20:30)
[2022-01-09] MEDS ORDERED: IOHEXOL 350 MG/ML 100ML IJ ONE (21:08)
[2022-01-09] MEDS ORDERED: KETOROLAC TROMETH 30 MG/ML 1ML VIAL IV ONE (21:15)
[2022-01-09] MEDS ORDERED: MORPHINE SULFATE INJ 2 MG/ml SYRG IV ONE (21:15)
[2022-01-09] MEDS ORDERED: BACL5TAB2 PO (21:25)
[2022-01-09] MEDS ORDERED: MORPHINE SULFATE 4 MG/ML SYR/VIAL ONE (21:26)
[2022-01-09 22:00] VITALS: BP 149/83
== END 2022-01-09 21:12 | disposition home or self-care (01) ==
LOC: EDBD 18:48 → EDUNIT# 18:48 → ER 18:48
DX: S93.401A Sprain of unspecified ligament of right ankle, initial encounter (principal); M79.10 Myalgia, unspecified site; R51.9 Headache, unspecified; M54.2 Cervicalgia; E03.9 Hypothyroidism, unspecified; Z90.89 Acquired absence of other organs; V49.9XXA Car occupant (driver) (passenger) injured in unspecified traffic accident, initial encounter; Y93.89 Activity, other specified; Y92.89 Other specified places as the place of occurrence of the external cause; Y99.8 Other external cause status
CPT/HCPCS: 36415; 70450; 71260; 72125; 73030; 73110; 73130; 73590; 73600; 73610; 74177; 80053; 85025; 86850; 86900; 86901; 96374; 96375; 99285; J1885; J2270; J3010; Q9967

== ENCOUNTER 2022-01-24 17:05 | Emergency (ER) | payer MEDICAID ==
[~2022-01-24 17:05] MED LIST changes: +BACL5TAB2 PO; -HYDROcodone-ACET 5/325MG TAB PO ONE; -medroxyPROGESTERone ACETATE 5 MG TAB PO ONE
== END 2022-01-24 18:56 | disposition left against medical advice (07) ==
LOC: ER 17:09
DX: M79.604 Pain in right leg (principal); Z53.21 Procedure and treatment not carried out due to patient leaving prior to being seen by health care provider

== ENCOUNTER 2022-01-27 08:42 | Emergency (ER) | payer MEDICAID, OTHER ==
[~2022-01-27] VITALS: Ht 152.4 cm; Wt 66.0 kg
[2022-01-27] MEDS ORDERED: ACE3T PO (11:45)
[2022-01-27] MEDS ORDERED: IBUP800T27 PO (11:45)
[2022-01-27 11:50] VITALS: BP 110/62
[2022-01-27] MEDS ORDERED: KETOROLAC TROMETH 60MG/2ML VIAL IM ONE (12:15)
== END 2022-01-27 12:15 | disposition home or self-care (01) ==
LOC: ER 08:42
DX: S83.91XA Sprain of unspecified site of right knee, initial encounter (principal); Z90.710 Acquired absence of both cervix and uterus; Z87.81 Personal history of (healed) traumatic fracture; X58.XXXA Exposure to other specified factors, initial encounter; Y93.89 Activity, other specified; Y92.89 Other specified places as the place of occurrence of the external cause; Y99.8 Other external cause status
CPT/HCPCS: 96372; 99283; J1885

== ENCOUNTER 2023-01-09 22:17 | Emergency (ER) | payer MEDICAID ==
[~2023-01-09] VITALS: Ht 152.4 cm; Wt 72.7 kg
[~2023-01-09 22:17] MED LIST changes: +ACE3T PO; +IBUP-1456 PO
[2023-01-09 22:26] VITALS: BP 122/92
[2023-01-09] MEDS ORDERED: DONNATAL 5ml ORAL Elix (BELLADONNA ALK-PHENOBARB) PO ONE (23:00)
[2023-01-09] MEDS ORDERED: LIDOCAINE VISCOUS 2% 15ML UD PO ONE (23:00)
[2023-01-09] MEDS ORDERED: MAALOX PLUS or MAALOX 30 ML PO ONE (23:00)
[2023-01-09] MEDS ORDERED: ONDANSETRON HCL 4 MG/2 ML VIAL IM ONE (23:00)
[2023-01-09 23:10] VITALS: PULSE 96; RESP 20; O2SAT 98
[2023-01-10] MEDS ORDERED: ZOFR4T PO (00:29)
[2023-01-10] MEDS ORDERED: ALUM1SUS16 PO (00:29)
== END 2023-01-10 00:38 | disposition left against medical advice (07) ==
LOC: ER 22:17
DX: R11.2 Nausea with vomiting, unspecified (principal); E66.01 Morbid (severe) obesity due to excess calories; Z68.31 Body mass index [BMI] 31.0-31.9, adult; Z90.710 Acquired absence of both cervix and uterus
CPT/HCPCS: 96372; 99284; J2405

== ENCOUNTER 2023-05-24 17:17 | Emergency (ER) | payer MEDICAID ==
[~2023-05-24] VITALS: Ht 154.9 cm; Wt 82.0 kg
[~2023-05-24 17:17] MED LIST changes: +ALUM1SUS16 PO; +ZOFR4T PO
[2023-05-24 17:28] VITALS: BP 111/88; RESP 22; O2SAT 97
[2023-05-24 17:31] VITALS: PULSE 116
== END 2023-05-24 18:44 | disposition left against medical advice (07) ==
LOC: ER 17:17
DX: R06.02 Shortness of breath (principal); Z53.21 Procedure and treatment not carried out due to patient leaving prior to being seen by health care provider
CPT/HCPCS: 93005

== ENCOUNTER 2024-11-11 21:29 | Emergency (ER) | payer MEDICAID ==
[~2024-11-11] VITALS: Ht 152.4 cm; Wt 72.0 kg
--- NOTE | 2024-11-11 21:43 | ED.PDOC ---
GI ASSESSMENT HPI Comments 49 y/o F, MOE, presents to the ED for CC of abdominal pain. EMS reports, patient is coming from home where she c/o diffuse abdominal pain with associated nausea and vomiting onset, today (11/11/24). EMS relays, patient had a cholecystectomy x2days ago and was discharged from facility today (11/11/24) without discharge paperwork or follow up appointment. Patient states, that she has been unable to take prescribed mediations d/t not having a direct support professional caregiver at this time. In route to the ED, patient was given 4mg Zofran with no affect. Patient denies hematemesis, chills, fever, or sweats. No other symptoms or modifying factors present at this time. Patient was hypertensive on arrival. Patient looks toxic. Time Seen by MD: 21:35 Primary Care Provider: [facility] Reviewed Notes: Nurses Notes, Titrator Notes, Medications, Allergies Allergies: Coded Allergies: NO KNOWN ALLERGIES (Unverified , 12/02/19) Home Meds Active Scripts Alum [employer] Mag Hydrox-Simethicone (Mylanta Maximum Strength 400-400-40 mg/5Ml) 1 Noa Noa, 5 ML PO BIDP PRN, #50 ML Prov:CORIN MORGAN PAC 01/10/23 Ondansetron Odt 4MG Tab (ZOFRAN PO) 4 Mg Tb, 4 MG PO Q6HP PRN, #10 TAB ODT TAB-DISSOLVE IN MOUTH, THEN SWALLOW Prov:CORIN MORGAN PAC 01/10/23 Ibuprofen (Ibuprofen) 800 Mg Tab, 1 TAB PO TID PRN, #30 TAB 0 Refills Prov:CHAVEZ COLLADO 01/27/22 Acetaminophen W/ Codeine (Tylenol W/Cod #3) 1 Tab Tb, 1 TAB PO QIDP, #10 TAB 0 Refills Prov:CHAVEZ COLLADO 01/27/22 Baclofen (Baclofen) 5 Mg Tab, 5 MG PO QHSP PRN for 15 Days, #15 TAB Prov:CORIN JACOBSON MD 01/09/22 Information Source: Patient, Emergency Med Personnel Mode of Arrival: EMS Timing: Hours Duration: Since onset Prehospital treatment: None Quality: None Vomitus: Food Particles, Soft, Watery Stool: Normal Severity: Moderate Recent: Recent Surgery Recent Hx of: None Pain Location: Diffuse Modifying Factors: Nothing Associated sign and symptoms: Nausea, Vomiting, Abdominal Pain Past Medical History PAST MEDICAL HISTORY: Thyroid Surgical History: Cholecystectomy, , 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 Family History Family History: Unknown, Family hx of HTN Social History Smoker: Non-Smoker Alcohol: Denies ETOH Use Drugs: Denies Drug Use Lives In: Home Constitutional: denies: chills, diaphoresis, fatigue, fever, malaise, sweats, weakness, others EENTM: denies: blurred vision, double vision, ear bleeding, ear discharge, ear drainage, ear pain, ear ringing, eye pain, eye redness, hearing loss, mouth pain, mouth swelling, nasal discharge, nose bleeding, nose congestion, nose pain, photophobia, tearing, throat pain, throat swelling, voice changes, others Respiratory: denies: cough, hemoptysis, orthopnea, SOB at rest, shortness of breath, SOB with excertion, stridor, wheezing, others Cardiovascular: denies: chest pain, dizzy spells, diaphoresis, Dyspnea on exertion, edema, irregular heart beat, left arm pain, lightheadedness, palpitations, PND, syncope, others Gastrointestinal: reports: abdominal pain, nausea, vomiting; denies: abdomen distended, blood streaked bowels, constipated, diarrhea, dysphagia, difficulty swallowing, hematemesis, melena, poor appetite, poor fluid intake, rectal bleeding, rectal pain, others Genitourinary: denies: abnormal vagina bleeding, burning, dyspareunia, dysuria, flank pain, frequency, hematuria, incontinence, pain, , vagina discharge, urgency, others Musculoskeletal: denies: back pain, gout, joint pain, joint swelling, muscle pain, muscle stiffness, neck pain, others Integumetry: denies: bruises, change in color, change in hair/nails, dryness, laceration, lesions, lumps, rash, wounds, others Allergic/Immunocompromised: denies: Difficulty Healing, Frequent Infections, Hives, Itching, others Hematologic/Lymphatic: denies: anemia, blood clots, easy bleeding, easy bruising, swollen glands, others Endocrine: denies: excessive hunger, excessive sweating, excessive thirst, excessive urination, flushing, intolerance to cold, intolerance to heat, unexplained weight gain, unexplained weight loss, others Psychiatric: denies: anxiety, bipolar disorder, depression, hopeless, panic disorder, schizophrenia, sleepless, suicidal, others All Other Systems: Reviewed and Negative Physical Exam General Appearance: Moderate Distress (Moderate distress due to nausea, vomiting and abdominal pain concerns.), Obese HEENT: Normal ENT Inspection, Pharynx Normal, TMs Normal Neck: Full Range of Motion, Non-Tender, Normal, Normal Inspection Respiratory: Chest Non-Tender, Lungs Clear, No Accessory Muscle Use, No Respiratory Distress, Normal Breath Sounds Cardiovascular: No Edema, No JVD, No Murmur, No Gallop, Normal Peripheral P ulses, Regular Rate/Rhythm Breast Exam: Deferred Gastrointestinal: Other (Diffuse abdominal pain with noted laparoscopic signs. Difficult to assess due to body habitus. No pulsatile masses.) Genitalia: Deferred Pelvic: Deferred Rectal: Deferred Extremities: No calf tenderness, Normal capillary refill, No pedal edema Neurologic: Alert, No Motor Deficits, No Sensory Deficits Cerebellar Function: NOT DONE Reflexes: NOT DONE Skin: Dry, Normal Color, Warm Lymphatic: No Adenopathy Was a procedure done? Was a procedure done?: No GI differential Dx Differential Diagnosis: Gastritis/PUD, Gastroenteritis, Electrolyte Imbalance, Food Poisoning, Bacterial, Viral, Other (postpo complication) X-Ray, Labs, Meds, VS Vital Signs Date Time Temp Pulse Resp B/P (MAP) Pulse Ox O2 Delivery O2 Flow Rate FiO2 11/11/24 22:59 66 16 98 Room Air* 0 21 11/11/24 22:53 98.0 92 19 162/104 (123) 92 98.0 11/11/24 22:51 90 16 162/104 11/11/24 21:49 97 11/11/24 21:29 97.7 92 16 151/107 (122) 94 97.7 Lab Test 11/11/24 21:58 Range/Units White Blood Count 13.9 H 4.4-10.8 10^3/uL Red Blood Count 5.35 H 4.0-5.20 10^6/uL Hemoglobin 15.3 12.2-16.2 g/dL Hematocrit 45.9 36.0-46.0 % Mean Corpuscular Volume 85.8 80.0-100.0 fL Mean Corpuscular Hemoglobin 28.5 28.0-32.0 pg Mean Corpuscular Hemoglobin Concent 33.3 32.0-36.0 g/dL Red Cell Distribution Width 13.8 11.8-14.3 % Platelet Count 320 140-450 10^3/uL Mean Platelet Volume 8.8 6.9-10.8 fL Neutrophils (%) (Auto) 89.4 H 37.0-80.0 % Lymphocytes (%) (Auto) 5.8 L 10.0-50.0 % Monocytes (%) (Auto) 4.3 0.0-12.0 % Eosinophils (%) (Auto) 0.2 0.0-7.0 % Basophils (%) (Auto) 0.3 0.0-2.0 % Neutrophils # (Auto) 12.5 H 1.6-8.6 10 ^3/uL Lymphocytes # (Auto) 0.8 0.4-5.4 10 ^3/uL Monocytes # (Auto) 0.6 0-1.3 10 ^3/uL Eosinophils # (Auto) 0 0-0.8 10 ^3/uL Basophils # (Auto) 0 0-0.2 10 ^3/uL Nucleated Red Blood Cells 0.0 % Sodium Level 138 136-145 mmol/L Potassium Level 3.4 L 3.5-5.1 mmol/L Chloride Level 100 98-107 mmol/L Carbon Dioxide Level 29 20-31 mmol/L Anion Gap 9 5-15 Blood Urea Nitrogen 5 L 9-23 mg/dL Creatinine 0.66 0.550-1.02 mg/dL Glomerular Filtration Rate Calc 106 >90 mL/min BUN/Creatinine Ratio 7.6 L 10.0-20.0 Serum Glucose 161 H 74-106 mg/dL Lactic Acid Level 1.2 0.4-2.0 mmol/L Calcium Level 10.5 H 8.7-10.4 mg/dL Current Medications Medications (Trade) Dose Ordered Sig/[place] Route Start Time Stop Time Status Last Admin Hydromorphone HCl (Dilaudid Injection) 0.5 mg ONCE ONCE IM 11/11/24 21:45 11/11/24 21:46 DC 11/11/24 22:51 Metoclopramide HCl (Reglan Injection) 10 mg ONCE ONCE IM 11/11/24 21:45 11/11/24 21:46 DC 11/11/24 22:49 X-Ray, Labs, Meds, VS Comment All studies performed the ED were evaluated by me personally. Serum laborator ies were relatively unremarkable. EKG revealed a sinus rhythm with a rate of 87. RSR in V1 or V2 with probable normal variation. Borderline T-wave abnormalities noted. [place] interval 158 and QT interval of 373. Patient received her medication and I went to the lobby to talk to the patient status post meds to see if they has been effective, but nursing informed me the patient had eloped from the facility stating she was going to the hospital that she had had the procedure performed. Time of 1ST Reevaluation: 23:12 Reevaluation 1ST: Improved Consultation: PCP, Surgery Patient Education/Counseling: Diagnosis, Treatment Family Education/Counseling: Diagnosis, Treatment, No Family Present Sepsis Sepsis Reasesment Focused Exam Orders: Laboratory Tests 11/11/24 21:58: Lactic Acid Level 1.2 Departure 1 Departure Time of Disposition: 23:14 Impression: Primary Impression: Postoperative pain Disposition: 07 LEFT AWOL/ELOPED Condition: Fair Discharged With: Self, Friend Critical Care Note Critical Care Time?: No Stability Stability form required: No Heart Score Heart Score: Heart Score Response (Comments) Value History Slightly Suspicious 0 EKG Repolarization Disturb 1 Age 45-64 1 Risk Factors 1 or 2 risk factors 1 Troponin N/A 0 Total 3 I personally scribed for CORIN MORGAN PAC ([email or web address]) on 11/11/24 at 21:43. Electronically submitted by Missy Malik ([email or web address]). CORIN MORGAN PAC Nov 11, 2024 21:43
--- NOTE | 2024-11-11 21:58 | ECG ---
[facility] Test Date: 2024-11-11 Test Time: 21:49:51 Pat Name: ALEXANDER MANSFIELD Department: ED Room: Gender: F Beauty Consultant: ALBETR : 1975 Requested By: CORIN MORGAN Order Number: [id number] Reading MD: Dario Moreno Measurements Intervals [place] Rate: 87 P: 65 IA: 159 QRS: 55 QRSD: 87 T: 0 QT: 373 QTc: 449 Interpretive Statements Sinus rhythm RSR' in V1 or V2, probably normal variant Borderline T wave abnormalities Electronically Signed On 11-13-2024 16:47:25 PDT by Dario Moreno Please click the below link to view image of tracing.
[2024-11-11 22:19] LABS: Basophils # (auto) 0 10 ^3/uL (0-0.2); Basophils % (auto) 0.3 % (0.0-2.0); Eosinophils # (auto) 0 10 ^3/uL (0-0.8); Eosinophils % (auto) 0.2 % (0.0-7.0); Hematocrit 45.9 % (36.0-46.0); Hemoglobin 15.3 g/dL (12.2-16.2); Lymphocytes # (auto) 0.8 10 ^3/uL (0.4-5.4); Lymphocytes % (auto) 5.8 % (10.0-50.0); Mean Corpuscular Hemoglobin 28.5 pg (28.0-32.0); Mean Corpuscular Hgb Conc. 33.3 g/dL (32.0-36.0); Mean Corpuscular Volume 85.8 fL (80.0-100.0); Monocytes # (auto) 0.6 10 ^3/uL (0-1.3); Monocytes % (auto) 4.3 % (0.0-12.0); Neutrophils # (auto) 12.5 10 ^3/uL (1.6-8.6); Neutrophils % (auto) 89.4 % (37.0-80.0); Platelet Count (auto) 320 10^3/uL (140-450); Red Blood Cells 5.35 10^6/uL (4.0-5.20); Red Cell Distribution Width 13.8 % (11.8-14.3); White Blood Cell 13.9 10^3/uL (4.4-10.8)
[2024-11-11 22:21] LABS: Chloride 100 mmol/L (98-107); Sodium 138 mmol/L (136-145)
[2024-11-11 22:22] LABS: Anion Gap 9 (5-15); Carbon Dioxide 29 mmol/L (20-31)
[2024-11-11 22:27] LABS: BUN/Creatinine Ratio 7.6 (10.0-20.0)
[2024-11-11 22:37] LABS: Blood Urea Nitrogen 5 mg/dL (9-23); Calcium 10.5 mg/dL (8.7-10.4); Glucose 161 mg/dL (74-106); Potassium 3.4 mmol/L (3.5-5.1)
[2024-11-11] MEDS: METOCLOPRAMIDE HCL 5MG/ml INJ 2ml VIAL IM ONE (22:49)
[2024-11-11] MEDS: HYDROmorphone HCL 2 MG/ML VL/or syr IM ONE (22:51)
[2024-11-11 22:53] VITALS: BP 162/104; TEMP 98
[2024-11-11 22:59] VITALS: PULSE 66; RESP 16; O2SAT 98
[2024-11-11] MEDS ORDERED: cloNIDine HCL 0.1 MG TAB PO ONE (23:00)
[2024-11-11] MEDS ORDERED: SODIUM CHLORIDE 0.9% 1,000 ML IV ONE (23:00)
== END 2024-11-11 23:09 | disposition left against medical advice (07) ==
LOC: EDBD 21:29 → ER 21:29
DX: G89.18 Other acute postprocedural pain (principal); R11.2 Nausea with vomiting, unspecified; Z90.710 Acquired absence of both cervix and uterus; Z90.49 Acquired absence of other specified parts of digestive tract
CPT/HCPCS: 36415; 80048; 83605; 85025; 93005; 96372; 99284; J1171; J2765